=== PATIENT | male | born 1965 | race African-American/Black ===

== ENCOUNTER 2017-12-18 23:39 | Emergency (ER) | payer MEDICARE, MEDICAID ==
[2017-12-19 01:39] VITALS: BP 105/57
[2017-12-19] MEDS ORDERED: CEFTRIAXONE INJ 250 MG VIAL IM ONE (02:40)
[2017-12-19] MEDS ORDERED: LIDOCAINE 1% INJ-PF (10 MG/ML) 30 ML SDV INJ ONE (02:40)
[2017-12-19] MEDS ORDERED: AZITHROMYCIN 250 MG TABLET PO ONE (02:40)
--- NOTE | 2017-12-19 02:42 | ER Document Report ---
ED General - General Chief Complaint: Scrotal Pain, Acute Onset Stated Complaint: GROIN PAIN Time Seen by Provider: 12/19/17 02:18 Notes: Patient is a 51-year-old male who presents with concerns of scrotal pain and penile discharge. Patient states that he had unprotected sexual intercourse with a female partner 2 days ago. He states that within 24 hours he began to develop a whitish, yellowish discharge from the end of his penis. He also notes severe burning with urination as well as a constant dull, constant throbbing pain to his penis and testicles. He denies any history of similar symptoms in the past. Nothing improves or worsens his symptoms. He has not seen his general doctor regarding today's concerns. He denies any fever or constitutional symptoms. TRAVEL OUTSIDE OF THE [place] IN LAST 30 DAYS: No - Related Data Allergies/Adverse Reactions: No Known Allergies Allergy (Unverified 09/11/11 17:06) Past Medical History - General Information source: Patient - Social History Smoking Status: Never Smoker Frequency of alcohol use: None Drug Abuse: None Lives with: Family Family History: Reviewed & Not Pertinent Pulmonary Medical History: Reports: Hx Asthma Past Surgical History: Reports: Hx Appendectomy, Hx Orthopedic Surgery - Immunizations Hx Diphtheria, Pertussis, Tetanus Vaccination: Yes Hx Pneumococcal Vaccination: 11/10/00 Review of Systems - Review of Systems Notes: Constitutional: Negative for fever. HENT: Negative for sore throat. Eyes: Negative for visual changes. Cardiovascular: Negative for chest pain. Respiratory: Negative for shortness of breath. Gastrointestinal: Negative for abdominal pain, vomiting or diarrhea. Genitourinary: Positive for dysuria, penile discharge Musculoskeletal: Negative for back pain. Skin: Negative for rash. Neurological: Negative for headaches, weakness or numbness. 10 point ROS negative except as marked above and in HPI. Physical Exam - Vital signs Vitals: Temp Pulse Resp BP Pulse Ox 97.6 F 69 18 109/73 96 12/19/17 00:27 12/19/17 00:27 12/19/17 00:27 12/19/17 00:27 12/19/17 00:27 Interpretation: Normal Notes: PHYSICAL EXAMINATION: GENERAL: Well-appearing, well-nourished and in no acute distress. HEAD: Atraumatic, normocephalic. EYES: Pupils equal round and reactive to light, extraocular movements intact, sclera anicteric, conjunctiva are normal. ENT: nares patent, oropharynx clear without exudates. Moist mucous membranes. NECK: Normal range of motion, supple without lymphadenopathy LUNGS: Breath sounds clear to auscultation bilaterally and equal. No wheezes rales or rhonchi. HEART: Regular rate and rhythm without murmurs ABDOMEN: Soft, nontender, normoactive bowel sounds. No guarding, no rebound. No masses appreciated. : No focal testicular tenderness, testicular swelling, or epididymal tenderness. Positive cremasteric reflex bilaterally. There is a copious amount of discharge coming from the urethral meatus. No penile lesions. EXTREMITIES: Normal range of motion, no pitting or edema. No cyanosis. PSYCH: Normal mood, normal affect. SKIN: Warm, Dry, normal turgor, no rashes or lesions noted. Course - Re-evaluation Re-evalutation: 12/19/17 02:41 Patient presents with copious white, yellow penile discharge or testicular tenderness on examination consistent with likely acute gonorrhea. Patient is otherwise nontoxic in appearance, vitals within normal limits. He has been treated with ceftriaxone and azithromycin. Health department follow-up has been recommended for full STI panel testing. At this time will discharge with return precautions and follow-up recommendations. Verbal discharge instructions given a the bedside and opportunity for questions given. Medication warnings reviewed. Patient is in agreement with this plan and has verbalized understanding of return precautions and the need for primary care follow-up in the next 24-72 hours. - Vital Signs Vital signs: Temp Pulse Resp BP Pulse Ox 97.6 F 66 18 105/57 L 96 12/19/17 01:38 12/19/17 01:38 12/19/17 01:38 12/19/17 01:38 12/19/17 01:38 Discharge - Discharge Clinical Impression: Sexually transmitted infection, Penile discharge Condition: Good Disposition: HOME, SELF-CARE Additional Instructions: You need to use protection every time you have sex. Failure to do so can result in transmission of infections or unintended . You have been treated for an sexually transmitted infection (STI) today. All of your partners should be tested and treated as they are also likely to be infected. Please return if you develop abdominal pain, fever, persistent vomiting, or any other symptoms that are concerning to you. Please follow-up at the local health department for STI testing. Address: [address] [place] [address] Hours: Fri-Fri 8am-4pm Thurs 12p-4p Fri 8a-4p
== END 2017-12-19 03:35 | disposition home or self-care (01) ==
LOC: ER 23:39
DX: A64 Unspecified sexually transmitted disease (principal); J45.909 Unspecified asthma, uncomplicated
CPT/HCPCS: 99283; 96372; A9270; J3490; J0696

== ENCOUNTER 2020-06-09 17:42 | Emergency (ER) | payer MEDICARE, MEDICAID ==
--- NOTE | 2020-06-09 18:01 | ER Document Report ---
ED General - General Chief Complaint: Ankle Swelling Stated Complaint: SWOLLEN FEET Time Seen by Provider: 06/09/20 17:44 Primary Care Provider: MOY MOSER MD [NO LOCAL MD] - Follow up as needed Notes: Patient presents with bilateral leg swelling mildly painful this been going on for about a week. Symmetric without redness. He is in a wheelchair secondary to paraplegia but has some movement of the legs and good sensation of the legs. No redness no fever. No heart failure liver failure or kidney failure in his past. No cough no fever. TRAVEL OUTSIDE OF THE [place] IN LAST 30 DAYS: No - Related Data Allergies/Adverse Reactions: No Known Allergies Allergy (Verified 06/09/20 17:56) Past Medical History - General Information source: Patient - Social History Smoking Status: Current Every Day Smoker Smoking Education Provided: Yes - The patient ED visit today was directly related to their abuse of tobacco. Frequency of alcohol use: Social Drug Abuse: None Family History: Reviewed & Not Pertinent Pulmonary Medical History: Reports: Hx Asthma Renal/ Medical History: Denies: Hx Peritoneal Dialysis Past Surgical History: Reports: Hx Appendectomy, Hx Orthopedic Surgery - Immunizations Hx Diphtheria, Pertussis, Tetanus Vaccination: Yes Hx Pneumococcal Vaccination: 11/10/00 Review of Systems - Review of Systems Notes: REVIEW OF SYSTEMS GEN: Denies fever, chills, weight loss ENT: Denies sore throat, nasal discharge, ear pain EYES: Denies blurry vision, eye pain, discharge CV: Denies chest pain, palpitations, edema RESP: Denies cough, shortness of breath, wheezing GI: Denies abdominal pain, nausea, vomiting, diarrhea MSK: Bilateral leg edema LYMPH: Denies swollen glands/lymph nodes NEURO: Denies headache, focal weakness or numbness, dizziness PSYCH: Denies depression, suicidal or homicidal ideation PHYSICAL EXAMINATION General: No acute distress, well-nourished Head: Atraumatic, normocephalic ENT: Mouth normal, oropharynx moist, no exudates or tonsillar enlargement Eyes: Conjunctiva normal, pupils equal, lids normal Neck: No JVD, supple, no guarding CVS: Normal rate, regular rhythm, no murmurs Resp: No resp distress, equal and normal breath sounds bilaterally GI: Nondistended, soft, no tenderness to palpation, no rebound or guarding Ext: No deformities, 2+ edema from the toes to the knees. Symmetric. No redness no tenderness and no compartment abnormalities. Back: No CVA or midline TTP Skin: No rash, warm Lymphatic: No lymphadeopathy noted Neuro: Awake, alert. Face symmetric. GCS 15. Normal sensation in both feet. Good movement but with some weakness in both feet and legs which is chronic. Physical Exam - Vital signs Vitals: Temp Pulse Resp BP Pulse Ox 98.3 F 66 20 153/96 H 97 06/09/20 18:06 06/09/20 18:06 06/09/20 18:06 06/09/20 18:06 06/09/20 18:06 Course - Re-evaluation Re-evalutation: 06/09/20 20:03 Bilateral lower extremity edema, minimally painful with no deformity signs of trauma redness or cellulitis. Will rule out heart failure kidney failure liver failure Patient's labs are unremarkable. Normal saturation negative BNP and troponin Stable for discharge home for further work-up with primary care. I have discussed with the patient there likely diagnosis, aftercare plan, follow-up plans and my usual and customary return precautions. They verbalized understanding of this. - Vital Signs Vital signs: Temp Pulse Resp BP Pulse Ox 98.3 F 66 20 153/96 H 97 06/09/20 18:06 06/09/20 18:06 06/09/20 18:06 06/09/20 18:06 06/09/20 18:06 - Laboratory Result Diagrams: 06/09/20 18:19 06/09/20 19:00 Laboratory results interpreted by me: 06/09/20 06/09/20 06/09/20 18:19 18:19 19:00 RBC 4.29 L MCV 100 H MCH 33.7 H Anion Gap 4 L Urine Blood SMALL H Discharge - Discharge Clinical Impression: Bilateral lower extremity edema Condition: Good Disposition: HOME, SELF-CARE Instructions: Edema, Peripheral ([facility]) Additional Instructions: Please follow-up with your regular doctor: No acute or dangerous cause of leg swelling was found in the emergency room today. We did a set of tests for heart failure kidney failure and liver failure. Referrals: MOY MOSER MD [NO LOCAL MD] - Follow up as needed
[2020-06-09 18:34] LABS: ABSOLUTE BASOPHILS # (AUTO) 0.1 10^3/uL (0.0-0.2); ABSOLUTE LYMPHOCYTES (AUTO) 2.2 10^3/uL (0.5-4.7); ABSOLUTE MONOCYTES (AUTO) 0.6 10^3/uL (0.1-1.4); ABSOLUTE NEUT (AUTO) 5.2 10^3/uL (1.7-8.2); APPEARANCE,URINE CLEAR; BASOPHILS % (AUTO) 0.7 % (0-2); BILIRUBIN,URINE NEGATIVE (NEGATIVE); COLOR,URINE STRAW; EOSINOPHILS % (AUTO) 0.5 % (0-6); GLUCOSE, URINE NEGATIVE (NEGATIVE); HEMOGLOBIN 14.4 g/dL (13.5-17.0); KETONES,URINE NEGATIVE (NEGATIVE); LEUKOCYTE ESTERASE,URINE NEGATIVE (NEGATIVE); LYMPHOCYTES % (AUTO) 27.4 % (13-45); MEAN CORPUSCULAR HEMOGLOBIN 33.7 pg (27.0-33.4); MEAN CORPUSCULAR HGB CONC 33.6 g/dL (32.0-36.0); MEAN CORPUSCULAR VOLUME 100 fl (80-97); NITRITE,URINE NEGATIVE (NEGATIVE); PLATELET COUNT 261 10^3/uL (150-450); PROTEIN,URINE NEGATIVE (NEGATIVE); RED BLOOD COUNT 4.29 10^6/uL (4.35-5.55); RED CELL DISTRIBUTION WIDTH 13.6 % (11.5-14.0); SEGMENTED NEUTROPHILS % (AUTO) 64.4 % (42-78); TOTAL CELLS COUNTED % (AUTO) 100 %; URINE SPECIFIC GRAVITY 1.004; UROBILINOGEN,URINE NEGATIVE mg/dL (<2.0); WHITE BLOOD COUNT 8.1 10^3/uL (4.0-10.5)
[2020-06-09 19:34] LABS: BLOOD UREA NITROGEN 10 mg/dL (7-20); CALCIUM 9.4 mg/dL (8.4-10.2); CARBON DIOXIDE 28 mmol/L (22-30); GLUCOSE 89 mg/dL (75-110); POTASSIUM 3.9 mmol/L (3.6-5.0)
[2020-06-09 19:40] LABS: CHLORIDE 106 mmol/L (98-107)
[2020-06-09 19:41] LABS: ANION GAP 4 (5-19)
[2020-06-09 19:44] LABS: NT PRO BNP 101 pg/mL (<125)
[2020-06-09 19:45] LABS: TROPONIN I < 0.012 ng/mL
[2020-06-09 20:09] VITALS: BP 150/89
--- NOTE | 2020-06-09 23:01 | EKG REPORT ---
SEVERITY:- NORMAL ECG - SINUS RHYTHM : Confirmed by: Azalia Baum MD 09-Jun-2020 23:00:50
== END 2020-06-09 20:12 | disposition home or self-care (01) ==
LOC: ER 17:42
DX: R60.0 Localized edema (principal); F17.200 Nicotine dependence, unspecified, uncomplicated; J45.909 Unspecified asthma, uncomplicated; G82.20 Paraplegia, unspecified; Z99.3 Dependence on wheelchair
CPT/HCPCS: 36415; 80048; 81001; 83880; 84484; 85025; 93005; 93010; 99283